=== PATIENT | male | born 1985 | race Caucasian/White ===

== ENCOUNTER 2021-09-12 13:52 | Emergency (ER) | payer MEDICAID ==
[~2021-09-12] VITALS: Ht 182.9 cm; Wt 79.5 kg
[2021-09-12 14:10] VITALS: BP 129/102
== END 2021-09-12 13:55 | disposition left against medical advice (07) ==
LOC: EMS 13:55
DX: F22 Delusional disorders (principal)

== ENCOUNTER 2021-09-12 15:26 | Emergency (ER) | payer MEDICAID ==
[~2021-09-12] VITALS: Ht 182.9 cm; Wt 65.9 kg
[2021-09-12 15:44] VITALS: BP 143/89
[2021-09-12] MEDS ORDERED: LORazepam 1 MG TABLET PO ONE (15:45)
[2021-09-12 16:39] LABS: BASOPHILS % (AUTO) 0.3 % (0.0-2.0); EOSINOPHILS % (AUTO) 0 % (1.0-6.0); HEMATOCRIT 46.9 % (41-53); HEMOGLOBIN 16.3 g/dL (13.5-17.5); LYMPHOCYTES # (AUTO) 1.8 K/uL (1.0-4.8); LYMPHOCYTES % (AUTO) 15.1 % (22.0-44.0); MEAN CORPUSCULAR HEMOGLOBIN 34.2 pg (26.0-34.0); MEAN CORPUSCULAR HGB CONC 34.7 G/dL (31.0-37.0); MEAN CORPUSCULAR VOLUME 98 fL (80-100); MONOCYTES # (AUTO) 1.3 K/uL (0.1-1.0); MONOCYTES % (AUTO) 10.6 % (2.0-9.0); NEUTROPHILS # (AUTO) 8.7 K/uL (1.8-7.7); PLATELET COUNT (AUTO) 309 K/uL (150-450); RED BLOOD CELL COUNT(AUTO) 4.77 MIL/uL (4.50-5.90); RED CELL DISTRIBUTION WIDTH 12.8 % (11.5-14.5)
[2021-09-12 16:55] LABS: ANION GAP 11 mmol/L (8-16); CALCIUM, TOTAL 9.7 mg/dL (8.8-10.5); CARBON DIOXIDE 28 mmol/L (22-29); CHLORIDE 98 mmol/L (98-107); GLOMERULAR FILTR. RATE CALC > 60 mL/min (>60); GLUCOSE,RANDOM 99 mg/dL (70-110); POTASSIUM 4.1 mmol/L (3.5-5.1); SODIUM SERUM 137 mmol/L (136-145); UREA NITROGEN, BLOOD 13 mg/dL (7-18)
[2021-09-12 17:01] LABS: ALANINE AMINOTRANSFERASE 28 U/L (12-78); ALBUMIN 4.9 g/dL (3.4-5.0); ALKALINE PHOSPHATASE 98 U/L (46-116); ASPARTATE AMINOTRANSFERASE 32 U/L (15-37); BILIRUBIN,TOTAL 4.2 mg/dL (0.1-1.0); TOTAL PROTEIN, SERUM 8.8 g/dL (6.4-8.2)
== END 2021-09-12 17:31 | disposition home or self-care (01) ==
LOC: EMS 17:28
DX: F22 Delusional disorders (principal)
CPT/HCPCS: 36415; 80053; 85025; 99284; G0480